=== PATIENT | male | born 1950 | race Caucasian/White ===

== ENCOUNTER → 2017-02-11 | Outpatient (CLI) | payer OTHER ==
[~2017-02-11] MED LIST: ASPIRIN; IBUPROFEN; RISPERIDONE; TEGRETOL; ULTRAM; ZANTAC
--- NOTE | ~2017-02-11 | CR63 ---
[facility] A Service of [facility] & [facility] RADIOLOGY TEXT RESULTS PATIENT: KAROLINA SCHAEFER LOCATION: [facility] : 52 UNIT #: [id number] AGE: [address]: ERIN HIRSCH APRN SEX: M ORDER DR: [id number] [facility] [address] [place], [place] [address] [id number] O MR#: [id number] Acc #: [id number] NAME: KAROLINA SCHAEFER : 1950 SEX: M STUDY DATE/TIME: 02/11/2017 12:51 UNIT: [facility] ROOM: STUDY DESCRIPTION: CR Chest 2 View Attending Physician: Erin Hirsch Aprn Referring Physician: Erin Hirsch Aprn Ordering Physician: Erin Hirsch Aprn Primary Care Physician: Erin Hirsch Aprn MEDICAL IMAGING REPORT This report is preliminary unless electronic signature is present EXAM Chest, 02/11/2017. HISTORY 67-year-old woman with productive cough x1 week. High blood pressure. COMPARISON Chest, 07/04/2015. FINDINGS 2-view chest demonstrates mild stable cardiac enlargement. Hilar structures and mediastinal contours are preserved. Bilateral lungs are clear and fully expanded. Costophrenic angles are preserved. Large body habitus noted. IMPRESSION Mild stable cardiomegaly. No acute chest finding. Dictated by... Kai Fontana M.D. THIS IS AN ELECTRONICALLY VERIFIED REPORT Kai Fontana M.D. at 02/12/2017 8:11 AM Bettina TD: 02/11/2017 16:26 JOB #: [id number] MEDICAL IMAGING REPORT Page 1 of 1 COPY
== END | disposition home or self-care (01) ==
LOC: CRAD 12:15
DX: R05 Cough (principal); I51.7 Cardiomegaly
CPT/HCPCS: 71020